=== PATIENT | male | born 1955 | race Caucasian/White ===

== ENCOUNTER 2019-07-05 13:46 | Day surgery (SDC) | payer OTHER, SELFPAY ==
[2019-07-05 14:22] VITALS: BP 141/91; PULSE 72; RESP 16; TEMP 36.9; O2SAT 96; BMI 26.0
[2019-07-05] MEDS: SODIUM CHLORIDE 0.9% 1,000 ML 200 ML IV (14:39)
[2019-07-05] MEDS: HYOSCYAMINE 0.125 MG TABLET PO (14:39)
--- NOTE | 2019-07-05 15:23 | PM.PREOP ---
Pre-operative Note Interval Note History & Physical reviewed/Exam performed by Physician: Yes Changes to H&P: No ASA Class (for procedural sedation): II
--- NOTE | 2019-07-05 15:23 | PM.OP.ENDO ---
Operative Date/Time/Diagnoses Date of procedure: 07/05/19 Time of procedure: 15:23 Pre-op diagnosis: 1. Left lower quadrant pain 2. Hematochezia 3. Screening for colon cancer Post-op diagnosis: other (Normal colonoscopy, mild sigmoid diverticulosis, external hemorrhoids) Procedure & Clinicians Study performed: 1. Colonoscopy Same procedure as scheduled: Yes Indications: 1. Screening for colon cancer Surgeon: Danielle Martinez Procedure Notes SCOAP/Timeout: 15:39 Procedure in detail: ENDOSCOPIST: Danielle Martinez MD Sedation RN: Zena Clifton RN Sedation start time: 3:39 p.m. Sedation and time: 4:11 p.m. PROCEDURE: Colonoscopy INDICATIONS: 1. Hematochezia 2. Left lower quadrant abdominal pain 3. Screening for colon cancer MEDICATION: Levsin 0.125 mg sublingual, incremental doses of Versed and fentanyl until appropriate level sedation achieved. ASA CLASS: 2 CECAL WITHDRAWAL TIME: 9 minutes COMPLICATIONS: None. EXTENT OF PROCEDURE: Cecum. QUALITY OF PREP: Good with portions of liquid stool. PROCEDURE: Prior to insertion of the colonoscope, a digital rectal examination was accomplished with circumferential palpation of the distal rectal mucosa without significant findings noted. The high-definition colonoscope was passed into the rectum in the usual fashion and advanced over to the cecum without difficulty. The ileocecal valve, appendiceal stoma, and medial wall all could be inspected and no abnormalities were seen. ASCENDING COLON: As the colonoscope was withdrawn, care was taken to expose and inspect the haustral folds and no abnormalities were seen. HEPATIC FLEXURE: Normal no polyps, diverticula or other abnormalities. TRANSVERSE COLON: Normal no polyps, diverticula or other abnormalities. DESCENDING COLON: Normal no polyps, diverticula or other abnormalities. SIGMOID COLON: Manage diverticulosis, otherwise, normal, no polyps, or other abnormalities. RECTUM: Normal. J maneuver was produced. There was no significant perianal disease. The J maneuver was broken. The remainder of the rectum was inspected and there was mild external hemorrhoid disease, nonthrombosed. The scope was withdrawn. IMPRESSION: 1. Normal colonoscopy 2. Diverticulosis, sigmoid, mild 3. External hemorrhoids, nonthrombosed PLAN: 1. Repeat colonoscopy in 10 years. 2. Hematochezia likely secondary to external hemorrhoids. Recommended high-fiber diet and increased water intake for treatment of diverticulosis and external hemorrhoids. The possibility of a missed lesion including a malignancy has been discussed with the patient previously. Potential alarm symptoms have been discussed and should be reported immediately. Scope withdrawal time: 9 minutes Sedation minutes: 35 Findings: diverticulosis and other findings (External hemorrhoids) Specimen(s): none sent Complications: none Impression: As above Post-procedure Recommendations: Colonscopy in 10 years Follow up: as needed Disposition: PACU
[2019-07-05] MEDS: fentaNYL 250 MCG/5 ML INJ IV (16:13)
[2019-07-05] MEDS: MIDAZOLAM 5 MG/5 ML VIAL IV (16:13)
[2019-07-05 16:17] VITALS: BP 99/63; PULSE 57; RESP 14; TEMP 36.1; O2SAT 95
[2019-07-05 16:22] VITALS: BP 99/63; PULSE 57; RESP 16; O2SAT 95
[2019-07-05 16:27] VITALS: BP 132/82; PULSE 69; RESP 16; O2SAT 96
[2019-07-05 16:33] VITALS: BP 129/75; PULSE 63; RESP 16; TEMP 36.4; O2SAT 95
[2019-07-05 16:40] VITALS: BP 132/73; PULSE 59; RESP 16; O2SAT 98
== END 2019-07-05 16:55 | disposition home or self-care (01) ==
PROVIDERS: PCP Family Medicine; Visit Provider Student in an Organized Health Care Education/Training Program
PROC: 0DJD8ZZ Inspection of Lower Intestinal Tract, Via Natural or Artificial Opening Endoscopic (ICD-10-PCS; CPT 45378; principal; 2019-07-05 15:00)
DX: R10.32 Left lower quadrant pain (principal); K92.1 Melena; K57.30 Diverticulosis of large intestine without perforation or abscess without bleeding; K64.4 Residual hemorrhoidal skin tags
CPT/HCPCS: 45378; J2250; J3010

== ENCOUNTER 2020-12-29 18:11 | Observation (INO) | payer MEDICARE, SELFPAY ==
[2020-12-29] VITALS (25 sets, daily range): BP systolic 134–220; BP diastolic 80–107; PULSE 64–87; RESP 15–36; TEMP 36.4–36.7; O2SAT 89–100; BMI 26.8
--- NOTE | 2020-12-29 | DI.CT.S_ITS ---
PROCEDURE: CT HEAD/BRAIN WO CON INDICATIONS: possible stroke TECHNIQUE: Noncontrast 4.5 mm thick angled axial sections acquired from the foramen magnum to the vertex, with coronal and sagittal reformats. For radiation dose reduction, the following was used: automated exposure control, adjustment of mA and/or kV according to patient size. COMPARISON: None. FINDINGS: Image quality: Excellent. CSF spaces: Basal cisterns are patent. No extra-axial fluid collections. The ventricles are symmetric in size and shape. Brain: No intracranial bleeds or masses. There is mild cerebral volume loss for age, with resultant ventricular and sulcal prominence. There are minimal periventricular and deep white matter chronic small vessel ischemic changes. There is intracranial internal carotid artery atherosclerosis. Skull and face: Calvarium and visualized facial bones appear intact, without suspicious lesions. Sinuses: Visualized sinuses and mastoids are clear. IMPRESSION: 1. No acute intracranial abnormalities. Dictated by: Tomasa Felipe M.D. on 12/29/2020 at 18:24 Approved by: Tomasa Felipe M.D. on 12/29/2020 at 18:25
--- NOTE | 2020-12-29 18:13 | DI.CT.S_ITS ---
PROCEDURE: CT ANGIO HEAD AND NECK INDICATIONS: code stroke TECHNIQUE: Noncontrast images were performed earlier in the day and not repeated. After the administration of intravenous contrast, 1 mm thick sections acquired from the aortic arch through the [place]. Post-contrast 4.5 mm thick sections then re-acquired from the foramen magnum to the vertex. 3-dimensional hkuzspd-nchvaqpep-bipuxbgmql (MIP) and/or volume rendering reformats were acquired of the central intracranial vasculature and neck separately. COMPARISON: [facility], CT, CT HEAD/BRAIN WO CON, 12/29/2020, 18:12. FINDINGS: Image quality: Excellent. BRAIN: CSF spaces: Ventricles are normal in size and shape. Basal cisterns are patent. No extra-axial fluid collections. Brain: No midline shift. No intracranial bleeds or masses. Hernández-white matter interface appears intact. Skull and face: Calvarium and facial bones appear intact, without suspicious lesions. Orbits appear normal. Sinuses: Sinuses and mastoids are clear. HEAD CT ANGIOGRAPHY: Anterior circulation: Intracranial internal carotid arteries are normal in size and flow. The flow within the paired anterior cerebral arteries is normal and symmetric. The flow within the middle cerebral arteries is normal and symmetric. The anterior communicating artery is seen. No aneurysms are seen. Posterior circulation: Visualized portions of the vertebral arteries demonstrate normal caliber, and join to form a normal appearing basilar artery. Flow within the posterior cerebral arteries is normal and symmetric. No aneurysms are seen. NECK CT ANGIOGRAPHY: Carotid system: The great vessels demonstrate a conventional anatomy as they arise from the aortic arch. The origins of the common carotid arteries appear patent. The common carotid arteries demonstrate normal caliber and courses. The bifurcation regions are both widely patent. The internal carotid arteries demonstrate normal calibers and courses. Posterior circulation: The origins of the vertebral arteries both appear widely patent. The more superior extracranial portions of both vertebral arteries also demonstrate normal courses and calibers. They join to form a normal appearing basilar artery. Soft tissues: Visualized neck soft tissues demonstrate no suspicious abnormalities. Bones: No suspicious bony lesions. Visualized cervical spine appears normally aligned. Cervical spine degenerative changes are seen, with moderate disc space narrowing at C2-C3 and moderate to severe disc space narrowing at C3-C4, C4-C5, C5-C6, and C6-C7. Degenerative changes are also seen within the visualized thoracic spine. IMPRESSION: No significant intracranial abnormality is seen. No abnormal enhancement. No significant intracranial arterial abnormality is seen. Within the arteries of the neck, no hemodynamically significant stenosis can be seen. Prominent cervical spine degenerative changes are noted. Any quantitative measurements of stenosis were performed using NASCET criteria. Dictated by: Jhony Sparks M.D. on 12/29/2020 at 17:33 Approved by: Jhony Sparks M.D. on 12/29/2020 at 17:36
[2020-12-29 18:18] LABS: Add Manual Diff / Slide Review NO; Basophils Absolute Auto 100 /uL (0-100); Basophils Percent Auto 0.9 % (0-2); Eosinophils Absolute Auto 200 /uL (0-450); Eosinophils Percent Auto 1.6 % (2-4); Hematocrit 44.1 % (41-53); Hemoglobin 14.8 g/dL (13.5-17.5); Lymphocytes Absolute Auto 1900 /uL (1100-4500); Lymphocytes Percent Auto 16.1 % (25-40); Mean Corpuscular HGB Conc 33.5 % (30-36); Mean Corpuscular Hemoglobin 33.6 PG (26-34); Mean Corpuscular Volume 100.2 fL (80-100); Monocytes Absolute Auto 1000 /uL (0-900); Monocytes Percent Auto 8.1 % (3-14); Neutrophils Absolute Auto 8600 /uL (1500-7000); Neutrophils Percent Auto 73.3 % (50-75); Platelet Count 244 X10^3/uL (150-400); Red Cell Distribution Width 13.2 % (11.6-14.8); White Blood Cell Count 11.7 X10^3/uL (4.5-11.0)
--- NOTE | 2020-12-29 18:28 | ED_ITS ---
HPI - Altered Mental Status General Chief Complaint: Neuro Symptoms/Deficit Stated Complaint: Code Stroke Time Seen by Provider: 12/29/20 18:12 Source: patient, family and EMS Mode of arrival: EMS Limitations: no limitations History of Present Illness HPI narrative: 65-year-old male nonsmoker with history of hypothyroid presents by EMS for evaluation of a sudden onset confusion at 3:30 p.m. today. He had been in his normal state of health up until then and working outside with his . He came inside to shower and then call to her and was confused, he kept repeating questions about what it happened how he got there and where he was. At no point did she notice any slurring of speech, facial droop, perceived weakness of extremities or other. He has had no recent trauma or injuries. He has no recent changes in medication or diet. No recent fever or chills, runny nose, sore throat or cough. No history of bleeding troubles. He was activated as a code stroke and taken directly to CT scan. MD complaint: altered mental status and confusion Time: 15:30 Timing confirmed by: spouse Severity: moderate Consistency of symptoms: constant Associated symptoms: denies other symptoms Related Data Home Medications Medication Instructions Recorded Confirmed levothyroxine 150 mcg PO QAM 12/29/20 12/29/20 Allergies Allergy/AdvReac Type Severity Reaction Status Date / Time No Known Drug Allergies Allergy Verified 07/05/19 14:21 Review of Systems Constitutional Constitutional: Denies chills, Denies fatigue, Denies fever(s), Denies frequent falls, Denies lethargy and Denies weakness Eyes Eyes: Denies change in vision, Denies eye discharge, Denies irritation and Denies loss of vision ENT Ears, Nose, Mouth, and Throat: Denies change in voice, Denies dizziness, Denies neck pain, Denies sore throat and Denies throat swelling Cardiovascular Cardiovascular: Denies chest pain, Denies irregular heart rhythm, Denies lightheadedness, Denies palpitations, Denies dyspnea, Denies dyspnea on exertion and Denies orthopnea Respiratory Respiratory: Denies cough, Denies dyspnea, Denies dyspnea on exertion and Denies wheezing Gastrointestinal Gastrointestinal: Denies abdominal pain, Denies change in bowel habits, Denies diarrhea, Denies nausea and Denies vomiting Musculoskeletal Musculoskeletal: Denies neck pain and Denies numbness Integumentary/Breasts Skin/Breast: Denies pruritus, Denies erythema, Denies rash and Denies wounds Neurologic Neurologic: Denies behavioral changes, Reports confusion, Denies dizziness, Denies frequent falls, Denies loss of vision, Denies numbness and Denies weakness Psychiatric Psychiatric: Denies anxiety, Denies behavioral changes, Reports confusion, Denies depression, Denies homicidal ideation and Denies suicidal ideation Endocrine Endocrine: Denies fatigue, Denies flushing and Denies palpitations Hematologic/Lymphatic Hematologic/Lymphatic: Denies easy bruising Allergic/Immunologic Allergic/Immunologic: Denies urticaria, Denies throat swelling and Denies wheezing Patient History Social History household members: spouse Smoking Status: Never smoker Smoking Status: Never smoker alcohol intake frequency: 0-2 drinks per day Substance Use Type: does not use Exam Narrative Exam Narrative: GENERAL: [65] year old patient appears stated age. Well- nourished, well-developed patient, in mild distress. Anxious, nervous, confused, repetitive questioning HEAD: Atraumatic. Normocephalic. EYES: Pupils equal round and reactive. Extraocular motions intact. No scleral icterus. No injection or drainage. ENT: Nose without bleeding, purulent drainage. Throat without erythema, tonsillar hypertrophy or exudate. Airway patent. NECK: Trachea midline. Non tender CARDIOVASCULAR: Regular rate and rhythm without murmurs, gallops, or rubs. RESPIRATORY: Clear to auscultation. Breath sounds equal bilaterally. No wheezes, rales, or rhonchi. GASTROINTESTINAL: Abdomen soft, non-tender, nondistended. EXTREMITIES: No edema or joint tenderness. BACK: Nontender without deformity or crepitance. No flank tenderness. NEURO: Alert to person, place SKIN: No rash or erythema of visible areas Initial Vital Signs Initial Vital Signs: Vital Signs Temperature 97.8 F 12/29/20 18:10 Pulse Rate 85 12/29/20 18:10 Respiratory Rate 15 12/29/20 18:10 Blood Pressure 220/103 H 12/29/20 18:10 Pulse Oximetry 100 12/29/20 18:10 Scores NIH Stroke Scale Level of Conciousness: Alert, keenly responsive Ask month/age: Answers one question correctly, intubated follow commands Open/close eyes, close hand: Performs both tasks correctly Best gaze horizontal: Normal Visual aggarwal: No visual loss Facial palsy: Normal symetrical movement Left arm drift: No drift for full 10 sec Right arm drift: No drift for full 10 sec Left leg drift: No drift for full 5 sec Right leg drift: No drift for full 5 sec Limb ataxia: Absent Sensory on face/arms/legs: Normal, no sensory loss Best language: No aphasia, normal Dysarthria: Normal Extinction or inattention: No abnormality Total NIH Stroke scale score: 1 Course Orders Ordered: ED Orders 12/29/20 18:12 EKG-12 Lead Stat 12/29/20 18:13 CT angio head and neck Stat 12/29/20 18:15 Basic Metabolic Panel Stat Complete Blood Count AUTO DIFF Stat Free T4, Direct Thyroxine Stat Magnesium Stat Partial Thromboplastin Time Stat Prothrombin Time INR Stat TSH w/ Reflex to FT4 Stat 12/29/20 18:25 COVID19 -Nasal swab/Pre-Proc Stat 12/29/20 18:45 UA Complete [Urinalysis and Microscopic] Stat Urine Drug Screen, Rapid Stat 12/29/20 19:00 COVID19 - ADMIT (AUDIO VISUAL TECHNICIAN swab/PCR) Stat Acetaminophen (Acetaminophen 325 Mg Tablet) 650 mg PO Q6HR PRN PRN Reason: Fever/Mild Pain (1-3) Al Hydrox/Mg Hydrox/Simethicone (Mag Hydrox/Alum/Simeth 30 Ml Udc) 30 ml PO Q6HR PRN PRN Reason: Dyspepsia Calcium Carbonate (Calcium Carbonate 500 Mg Tab) 1,000 mg PO Q4HR PRN PRN Reason: Dyspepsia Enoxaparin Sodium (Enoxaparin 40 Mg/0.4 Ml Syringe) 40 mg SUBCUT DAILY TATUM Ibuprofen (Ibuprofen 600 Mg Tablet) 600 mg PO Q6HR PRN PRN Reason: Fever/Mild Pain (1-3) Naloxone HCl (Naloxone 0.4 Mg/Ml Vial) 0.2 mg IV Q2MIN PRN PRN Reason: Opiate Reversal Ondansetron HCl (Ondansetron 4 Mg/2 Ml Inj) 4 mg IV Q8HR PRN PRN Reason: Nausea And Vomiting Sodium Chloride (Sodium Chloride 0.9% Flush) 10 ml IV PRN PRN PRN Reason: Flush Sodium Chloride (Sodium Chloride 0.9% Flush) 10 ml IV BID TATUM Discontinued Medications Sodium Chloride (Normal Saline 0.9%) 1,000 mls @ 150 mls/hr IV CONT TATUM Last Infusion: 12/29/20 21:24 Dose: 0 mls/hr Documented by: Admin: 12/29/20 18:35 Dose: 150 mls/hr Documented by: ANTWON Labetalol HCl (Labetalol 20 Mg/4 Ml Syringe) 20 mg IV NOW ONE Stop: 12/29/20 18:28 Last Admin: 12/29/20 20:09 Dose: Not Given Documented by: ANTWON Consultations Consultation #1: call to Telestroke upon return from CT. After discussion of history, physical, and imaging Dr. Cain shares the opinion that the patient is not a candidate for TPA given low NIHSS (1 for confusion) and that risks would outweigh potential benefit. This is relayed to who agrees. Suggests that diagnosis sounds like possible TGA and patient will require admission for stroke work up including echo and MRI/MRA. Consultation #2: Dr. Purdy is happy to accept Vital Signs Vital signs: Vital Signs - 8 hr 12/29/20 18:10 12/29/20 18:21 12/29/20 18:25 Temperature 97.8 F Pulse Rate 85 87 84 Respiratory Rate 15 33 H Blood Pressure 220/103 H 220/103 H Pulse Oximetry 100 89 L 98 12/29/20 18:30 12/29/20 18:31 12/29/20 18:40 Temperature Pulse Rate 76 75 75 Respiratory Rate 28 H 27 H 33 H Blood Pressure 177/86 H Pulse Oximetry 100 100 99 12/29/20 18:46 12/29/20 18:49 12/29/20 18:50 Temperature Pulse Rate 83 68 69 Respiratory Rate 36 H 26 H 22 Blood Pressure 160/80 H 176/87 H Pulse Oximetry 98 98 98 12/29/20 19:00 12/29/20 19:10 12/29/20 19:20 Temperature Pulse Rate 73 68 74 Respiratory Rate 24 24 22 Blood Pressure 168/86 H 170/89 H 180/107 H Pulse Oximetry 99 100 12/29/20 19:30 12/29/20 19:40 Temperature Pulse Rate 69 69 Respiratory Rate 21 19 Blood Pressure 151/85 H 152/91 H Pulse Oximetry 98 98 MDM - Altered Mental Status Lab Data Result diagrams: 12/29/20 18:15 12/29/20 18:15 Labs: Lab Results 12/29/20 12/29/20 12/29/20 Range/Units 18:15 18:15 18:15 WBC 11.7 H (4.5-11.0) X10^3/uL RBC 4.40 L (4.5-5.9) X10^6/uL Hgb 14.8 (13.5-17.5) g/dL Hct 44.1 (41-53) % MCV 100.2 H (80-100) fL MCH 33.6 (26-34) PG MCHC 33.5 (30-36) % RDW 13.2 (11.6-14.8) % Plt Count 244 (150-400) X10^3/uL Neut % (Auto) 73.3 (50-75) % Lymph % (Auto) 16.1 L (25-40) % [place] % (Auto) 8.1 (3-14) % Eos % (Auto) 1.6 L (2-4) % Baso % (Auto) 0.9 (0-2) % Neut # (Auto) 8600 H (9936-0094) /uL Lymph # (Auto) 1900 (4544-0737) /uL [place] # (Auto) 1000 H (0-900) /uL Eos # (Auto) 200 (0-450) /uL Baso # (Auto) 100 (0-100) /uL PT 11.7 (10.1-12.7) SECONDS INR 1.0 (0.9-1.3) APTT 33 (26.4-36.2) SECONDS Sodium 138 (137-145) mmol/L Potassium 3.9 (3.4-5.1) mmol/L Chloride 106 (98-107) mmol/L Carbon Dioxide 28 (22-32) mmol/L BUN 16 (9-20) mg/dL Creatinine 1.13 (0.66-1.25) mg/dL Estimated GFR > 60.0 (>60) mL/min BUN/Creatinine Ratio 14.2 (6-22) Glucose 99 (80-110) mg/dL Calcium 9.8 (8.4-10.2) mg/dL Magnesium (1.6-2.3) mg/dL TSH (0.47-4.68) uIU/mL Free T4 (0.78-2.19) ng/dL Urine Color Urine Appearance Urine pH (4.5-8.0) Ur Specific [place] (1.000-1.035) Urine Protein (Negative) Urine Glucose (UA) (Negative) g/dL Urine Ketones (NEGATIVE) Urine Occult Blood (Negative) Urine Nitrate (Negative) Urine Bilirubin (NEGATIVE) Urine Urobilinogen (0.2) E.U./dL Ur Leukocyte Esterase (NEGATIVE) Urine RBC (0-5/HPF) Urine WBC (0-5/HPF) Urine Bacteria (None) Ur Culture Indicated? Micro UA Comment U Opiates 300ng/mL cut (Negative) Ur Oxycodone Screen (Negative) Urine Methadone Screen (Negative) Ur Barbiturates Screen (Negative) U Tricyclic Antidepress (Negative) Ur Phencyclidine Scrn (Negative) Ur Amphetamines Screen (Negative) U Methamphetamines Scrn (Negative) Ur MDMA Scrn (Ecstasy) (Negative) U Benzodiazepines Scrn (Negative) Urine Cocaine Screen (Negative) U Marijuana (THC) Screen (Negative) SARS-CoV-2 (PCR) (Negative) 12/29/20 12/29/20 12/29/20 Range/Units 18:15 18:15 18:25 WBC (4.5-11.0) X10^3/uL RBC (4.5-5.9) X10^6/uL Hgb (13.5-17.5) g/dL Hct (41-53) % MCV (80-100) fL MCH (26-34) PG MCHC (30-36) % RDW (11.6-14.8) % Plt Count (150-400) X10^3/uL Neut % (Auto) (50-75) % Lymph % (Auto) (25-40) % [place] % (Auto) (3-14) % Eos % (Auto) (2-4) % Baso % (Auto) (0-2) % Neut # (Auto) (3077-4533) /uL Lymph # (Auto) (1944-6711) /uL [place] # (Auto) (0-900) /uL Eos # (Auto) (0-450) /uL Baso # (Auto) (0-100) /uL PT (10.1-12.7) SECONDS INR (0.9-1.3) APTT (26.4-36.2) SECONDS Sodium (137-145) mmol/L Potassium (3.4-5.1) mmol/L Chloride (98-107) mmol/L Carbon Dioxide (22-32) mmol/L BUN (9-20) mg/dL Creatinine (0.66-1.25) mg/dL Estimated GFR (>60) mL/min BUN/Creatinine Ratio (6-22) Glucose (80-110) mg/dL Calcium (8.4-10.2) mg/dL Magnesium 1.9 (1.6-2.3) mg/dL TSH 0.06 L (0.47-4.68) uIU/mL Free T4 1.46 (0.78-2.19) ng/dL Urine Color Urine Appearance Urine pH (4.5-8.0) Ur Specific [place] (1.000-1.035) Urine Protein (Negative) Urine Glucose (UA) (Negative) g/dL Urine Ketones (NEGATIVE) Urine Occult Blood (Negative) Urine Nitrate (Negative) Urine Bilirubin (NEGATIVE) Urine Urobilinogen (0.2) E.U./dL Ur Leukocyte Esterase (NEGATIVE) Urine RBC (0-5/HPF) Urine WBC (0-5/HPF) Urine Bacteria (None) Ur Culture Indicated? Micro UA Comment U Opiates 300ng/mL cut (Negative) Ur Oxycodone Screen (Negative) Urine Methadone Screen (Negative) Ur Barbiturates Screen (Negative) U Tricyclic Antidepress (Negative) Ur Phencyclidine Scrn (Negative) Ur Amphetamines Screen (Negative) U Methamphetamines Scrn (Negative) Ur MDMA Scrn (Ecstasy) (Negative) U Benzodiazepines Scrn (Negative) Urine Cocaine Screen (Negative) U Marijuana (THC) Screen (Negative) SARS-CoV-2 (PCR) Negative (Negative) 12/29/20 12/29/20 12/29/20 Range/Units 18:45 18:45 19:00 WBC (4.5-11.0) X10^3/uL RBC (4.5-5.9) X10^6/uL Hgb (13.5-17.5) g/dL Hct (41-53) % MCV (80-100) fL MCH (26-34) PG MCHC (30-36) % RDW (11.6-14.8) % Plt Count (150-400) X10^3/uL Neut % (Auto) (50-75) % Lymph % (Auto) (25-40) % [place] % (Auto) (3-14) % Eos % (Auto) (2-4) % Baso % (Auto) (0-2) % Neut # (Auto) (6097-2349) /uL Lymph # (Auto) (6091-2705) /uL [place] # (Auto) (0-900) /uL Eos # (Auto) (0-450) /uL Baso # (Auto) (0-100) /uL PT (10.1-12.7) SECONDS INR (0.9-1.3) APTT (26.4-36.2) SECONDS Sodium (137-145) mmol/L Potassium (3.4-5.1) mmol/L Chloride (98-107) mmol/L Carbon Dioxide (22-32) mmol/L BUN (9-20) mg/dL Creatinine (0.66-1.25) mg/dL Estimated GFR (>60) mL/min BUN/Creatinine Ratio (6-22) Glucose (80-110) mg/dL Calcium (8.4-10.2) mg/dL Magnesium (1.6-2.3) mg/dL TSH (0.47-4.68) uIU/mL Free T4 (0.78-2.19) ng/dL Urine Color Yellow Urine Appearance Clear Urine pH 7.0 (4.5-8.0) Ur Specific [place] 1.010 (1.000-1.035) Urine Protein Negative (Negative) Urine Glucose (UA) Negative (Negative) g/dL Urine Ketones 1+ H (NEGATIVE) Urine Occult Blood Negative (Negative) Urine Nitrate Negative (Negative) Urine Bilirubin Negative (NEGATIVE) Urine Urobilinogen 0.2 (0.2) E.U./dL Ur Leukocyte Esterase Negative (NEGATIVE) Urine RBC 0-1/hpf (0-5/HPF) Urine WBC 0-1/hpf (0-5/HPF) Urine Bacteria None seen (None) Ur Culture Indicated? Cult not indicated Micro UA Comment Microscopic normal U Opiates 300ng/mL cut Negative (Negative) Ur Oxycodone Screen Negative (Negative) Urine Methadone Screen Negative (Negative) Ur Barbiturates Screen Negative (Negative) U Tricyclic Antidepress Negative (Negative) Ur Phencyclidine Scrn Negative (Negative) Ur Amphetamines Screen Negative (Negative) U Methamphetamines Scrn Negative (Negative) Ur MDMA Scrn (Ecstasy) Negative (Negative) U Benzodiazepines Scrn Negative (Negative) Urine Cocaine Screen Negative (Negative) U Marijuana (THC) Screen Negative (Negative) SARS-CoV-2 (PCR) Negative (Negative) Point of Care Testing Glucose POC [address] scan - head: Attestation: I personally reviewed and interpreted this imaging study as follows: My Impression: No bleed Radiologist's Impression: London Roberson 65 M [address] [id number] Scan ReportSigned Patient: London Roberson WMR#: [id number]: [id number]:[id number]/Sex: 65 / MDate of Service: 12/29/20Loc: EDAccession Number: [id number] Procedure: CT head/brain wo con Ordering Provider: Catrachito Disla D.O. PROCEDURE: CT HEAD/BRAIN WO CON INDICATIONS: possible stroke TECHNIQUE: Noncontrast 4.5 mm thick angled axial sections acquired from the foramen magnum to the vertex, with coronal and sagittal reformats. For radiation dose reduction, the following was used: automated exposure control, adjustment of mA and/or kV according to patient size. COMPARISON: None. FINDINGS: Image quality: Excellent. CSF spaces: Basal cisterns are patent. No extra-axial fluid collections. The ventricles are symmetric in size and shape. Brain: No intracranial bleeds or masses. There is mild cerebral volume loss for age, with resultant ventricular and sulcal prominence. There are minimal periventricular and deep white matter chronic small vessel ischemic changes. There is intracranial internal carotid artery atherosclerosis. Skull and face: Calvarium and visualized facial bones appear intact, without suspicious lesions. Sinuses: Visualized sinuses and mastoids are clear. IMPRESSION: 1. No acute intracranial abnormalities. Dictated by: Tomasa Felipe M.D. on 12/29/2020 at 18:24 Approved by: Tomasa Felipe M.D. on 12/29/2020 at 18:25 CTA - brain/neck: Radiologist's Impression: [facility] [place] [id number] Scan ReportSigned Patient: London Roberson WMR#: [id number]: [id number]:[id number]/Sex: 65 / MDate of Service: 12/29/20Loc: EDAccession Number: [id number] Procedure: CT angio head and neck Ordering Provider: Catrachito Disla D.O. PROCEDURE: CT ANGIO HEAD AND NECK INDICATIONS: code stroke TECHNIQUE: Noncontrast images were performed earlier in the day and not repeated. After the administration of intravenous contrast, 1 mm thick sections acquired from the aortic arch through the [place] of [place]. Post-contrast 4.5 mm thick sections then re- acquired from the foramen magnum to the vertex. 3-dimensional nlvsuvm-[id number]-sgrlcwbknv (MIP) and/or volume rendering reformats were acquired of the central intracranial vasculature and neck separately. COMPARISON: [facility], CT, CT HEAD/BRAIN WO CON, 12/29/2020, 18:12. FINDINGS: Image quality: Excellent. BRAIN: CSF spaces: Ventricles are normal in size and shape. Basal cisterns are patent. No extra-axial fluid collections. Brain: No midline shift. No intracranial bleeds or masses. Hernández-white matter interface appears intact. Skull and face: Calvarium and facial bones appear intact, without suspicious lesions. Orbits appear normal. Sinuses: Sinuses and mastoids are clear. HEAD CT ANGIOGRAPHY: Anterior circulation: Intracranial internal carotid arteries are normal in size and flow. The flow within the paired anterior cerebral arteries is normal and symmetric. The flow within the middle cerebral arteries is normal and symmetric. The anterior communicating artery is seen. No aneurysms are seen. Posterior circulation: Visualized portions of the vertebral arteries demonstrate normal caliber, and join to form a normal appearing basilar artery. Flow within the posterior cerebral arteries is normal and symmetric. No aneurysms are seen. NECK CT ANGIOGRAPHY: Carotid system: The great vessels demonstrate a conventional anatomy as they arise from the aortic arch. The origins of the common carotid arteries appear patent. The common carotid arteries demonstrate normal caliber and courses. The bifurcation regions are both widely patent. The internal carotid arteries demonstrate normal calibers and courses. Posterior circulation: The origins of the vertebral arteries both appear widely patent. The more superior extracranial portions of both vertebral arteries also demonstrate normal courses and calibers. They join to form a normal appearing basilar artery. Soft tissues: Visualized neck soft tissues demonstrate no suspicious abnormalities. Bones: No suspicious bony lesions. Visualized cervical spine appears normally aligned. Cervical spine degenerative changes are seen, with moderate disc space narrowing at C2-C3 and moderate to severe disc space narrowing at C3-C4, C4-C5, C5-C6, and C6-C7. Degenerative changes are also seen within the visualized thoracic spine. IMPRESSION: No significant intracranial abnormality is seen. No abnormal enhancement. No significant intracranial arterial abnormality is seen. Within the arteries of the neck, no hemodynamically significant stenosis can be seen. Prominent cervical spine degenerative changes are noted. Any quantitative measurements of stenosis were performed using NASCET criteria. Dictated by: Jhony Sparks M.D. on 12/29/2020 at 17:33 Approved by: Jhony Sparks M.D. on 12/29/2020 at 17:36 Discharge Plan Departure Patient Disposition: Admitted as Observation Clinical Impression: Acute confusion, Amnesia, global, transient Admit Date/Time: 12/29/20 19:44 Admit Provider: Aggie Purdy
[2020-12-29 18:30] LABS: Prothrombin Time 11.7 SECONDS (10.1-12.7)
[2020-12-29 18:32] LABS: PTT Partial Thromboplastin Tim 33 SECONDS (26.4-36.2)
[2020-12-29 18:33] LABS: BUN Creatinine Ratio 14.2 (6-22); Blood Urea Nitrogen 16 mg/dL (9-20); Calcium 9.8 mg/dL (8.4-10.2); Carbon Dioxide 28 mmol/L (22-32); Chloride 106 mmol/L (98-107); Estimated Glomerular Filt Rate > 60.0 mL/min (>60); Glucose 99 mg/dL (80-110); HEMOLYSIS < 15 (0-50); Potassium 3.9 mmol/L (3.4-5.1); Sodium 138 mmol/L (137-145)
[2020-12-29] MEDS: SODIUM CHLORIDE 0.9% 1,000 ML 150 ML IV (18:35)
[2020-12-29 18:46] LABS: COVID19 -Nasal RAPID Negative (Negative)
[2020-12-29 19:03] LABS: UR Morphine/Opiate cutoff 300 Negative (Negative); Ur Creatinine Normal (Normal); Ur Specific Gravity Normal (Normal); Urine Amphetamines Negative (Negative); Urine Barbiturates Negative (Negative); Urine Benzodiazepines Negative (Negative); Urine Cocaine Negative (Negative); Urine MDMA Negative (Negative); Urine Methadone Negative (Negative); Urine Methamphetamines Negative (Negative); Urine Oxycodone Negative (Negative); Urine Phencyclidine Negative (Negative); Urine Tetrahydrocannabinol Negative (Negative); Urine Tricyclic Antidepressant Negative (Negative); Urine pH Normal (Normal)
[2020-12-29 19:05] LABS: Bacteria Urine None Seen
--- NOTE | 2020-12-29 19:05 | PC.NURSE ---
patient continues to ask the same questions, whats going on? did I eat dinner?, is it ten to 7? explains the same repetetative questions starting today at 1530. she reports jaime got out of the shower and started asking if he took his shower yet. he put deodorant on 4 or five time. she attempted to get him in the car however he did not know why and refused to get into the car. she called EMS.
[2020-12-29 19:09] LABS: Appearance Urine UA CLEAR; Bilirubin Urine UA NEGATIVE (NEGATIVE); Color Urine UA YELLOW; Glucose Urine UA NEGATIVE (Negative); Ketones Urine UA 1+ (NEGATIVE); Leukocyte Esterase Urine UA NEGATIVE (NEGATIVE); Nitrite Urine UA NEGATIVE (Negative); Occult Blood Urine UA NEGATIVE (Negative); Protein Urine UA NEGATIVE (Negative); Urobilinogen Urine UA 0.2 E.U./dL (0.2)
[2020-12-29 19:15] LABS: Culture Indicated Urine Cult Not Indicated; RBC Urine 0-1/HPF (0-5/HPF); Urine Comments Microscopic Normal; WBC Urine 0-1/HPF (0-5/HPF)
[2020-12-29 20:04] LABS: Magnesium 1.9 mg/dL (1.6-2.3)
[2020-12-29 20:30] LABS: COVID19 - ADMIT (NP swab/PCR) Negative (Negative)
[2020-12-29 20:39] LABS: TSH w/ Reflex to FT4 0.06 uIU/mL (0.47-4.68)
[2020-12-29 21:05] LABS: Free T4, Direct Thyroxine 1.46 ng/dL (0.78-2.19)
--- NOTE | 2020-12-30 01:30 | PC.NURSE ---
2325: patient is alert and oriented except is unable to recall what happened that brought him to the hospital and does not remember coming to the hospital. Attempts to deflect memory problem by stating it's old age. Breath sounds CTA with RA sat of 99%. HRR with telemetry reading of SR. Denies nausea. BT present and abdomen is soft. Has nocturia but denies dysuria, frequency or urgency with urination. Independent with mobility and is steady on feet. Does relate he has a 2/10 headache but declines offer of pain medication. Wearing bilateral calf SCD's. Fall risk score is low.
[2020-12-30 03:26] VITALS: BP 143/88; PULSE 60; RESP 20; TEMP 37.1; O2SAT 97
[2020-12-30 05:44] LABS: Add Manual Diff / Slide Review NO; Basophils Absolute Auto 100 /uL (0-100); Eosinophils Absolute Auto 300 /uL (0-450); Eosinophils Percent Auto 4.1 % (2-4); Hematocrit 41.5 % (41-53); Hemoglobin 13.8 g/dL (13.5-17.5); Lymphocytes Absolute Auto 1100 /uL (1100-4500); Lymphocytes Percent Auto 15.8 % (25-40); Mean Corpuscular HGB Conc 33.3 % (30-36); Mean Corpuscular Hemoglobin 33.2 PG (26-34); Mean Corpuscular Volume 99.7 fL (80-100); Monocytes Absolute Auto 800 /uL (0-900); Neutrophils Absolute Auto 4500 /uL (1500-7000); Neutrophils Percent Auto 67.1 % (50-75); Platelet Count 207 X10^3/uL (150-400); Red Blood Cell Count 4.16 X10^6/uL (4.5-5.9); Red Cell Distribution Width 13.3 % (11.6-14.8); White Blood Cell Count 6.7 X10^3/uL (4.5-11.0)
[2020-12-30 05:48] LABS: Alanine Aminotransferase 16 IU/L (<50); Albumin 3.8 g/dL (3.5-5.0); Albumin Globulin Ratio 1.5 (1.0-2.8); Alkaline Phosphatase 58 U/L (38-126); Aspartate Aminotransferase 30 IU/L (17-59); BUN Creatinine Ratio 12.6 (6-22); Blood Urea Nitrogen 13 mg/dL (9-20); Calcium 8.9 mg/dL (8.4-10.2); Carbon Dioxide 30 mmol/L (22-32); Chloride 106 mmol/L (98-107); Estimated Glomerular Filt Rate > 60.0 mL/min (>60); Globulin 2.6 g/dL (1.7-4.1); Glucose 100 mg/dL (80-110); HEMOLYSIS < 15 (0-50); Potassium 4.1 mmol/L (3.4-5.1); Sodium 136 mmol/L (137-145); Total Protein 6.4 g/dL (6.3-8.2)
[2020-12-30 07:15] VITALS: BP 146/82; PULSE 60; RESP 21; TEMP 36.6; O2SAT 97
[2020-12-30 07:50] VITALS: O2SAT 96
[2020-12-30] MEDS: SODIUM CHLORIDE 0.9% FLUSH 10 ML IV (08:17)
--- NOTE | 2020-12-30 09:15 | DI.ECHO.S_ITS ---
[facility]+ [facility] +---------+ : : [address] : : : : [id number] : : : : Phone: [phone]+ Echocardiogram Report + + :Name: DIANA YANEZ Study Date: 12/30/2020 Height: 72 in : :[facility] ReadingLocation: Weight: 197 lb : : Gender: Male BSA: 2.1 m2 : :: 1955 Age: 65 yrs BP: 146/82 mmHg: :Reason For Study: TIA SIS : :Ordering Physician: GINA, : :LEI Chavez Performed By: Raquel Carter : :Referring: LEI FUENTES : + + Interpretation Summary The patient was in sinus rhythm with heart rates between 62-70 bpm during the exam. The left ventricle is normal in size and wall thickness. The ejection fraction is estimated to be 60-65%. There is no obvious LV thrombus. The right ventricle is borderline dilated. The right ventricular systolic function is normal. No significant valvular pathology seen. Aortic arch did not show any significant atherosclerotic lesion. Procedure: A two-dimensional transthoracic echocardiogram with color flow and Doppler was performed. The study quality was technically adequate. There is no prior echocardiogram noted for this patient. The patient was in sinus rhythm with heart rates between 62-70 bpm during the exam. Left Ventricle: The left ventricle is normal in size and wall thickness. There is no thrombus. The ejection fraction is estimated to be 60-65%. There are no focal wall motion abnormalities. Diastolic parameters suggest a relaxation abnormality of the left ventricle, consistent with probable normal filling pressures. Right Ventricle: The right ventricle is borderline dilated. The right ventricular systolic function is normal. Atria: The left atrium is moderately dilated. The right atrium is mildly dilated. There is no Doppler evidence for an interatrial shunt. Mitral Valve: The mitral valve is normal. There is mild mitral regurgitation. Aortic Valve: The aortic valve is trileaflet. The aortic valve opens well. There is no aortic valve stenosis. No aortic regurgitation is present. Tricuspid Valve: The tricuspid valve is normal in structure and function. There is trace tricuspid regurgitation. Pulmonary artery pressures cannot be estimated because of the lack of a measurable TR jet velocity but the IVC suggests a CVP of around 3 mmHg. Pulmonic Valve: The pulmonic valve leaflets are thin and pliable; valve motion is normal. There is no pulmonic valvular regurgitation. Great Vessels: The aortic root is normal size. The ascending aorta is mildly enlarged. The IVC is of normal diameter and collapses greater than 50% with a sniff. This suggests a low right atrial pressure of 3 mm Hg. Pericardium/ Pleura There is no pericardial effusion. There is no pleural effusion. MMode/2D Measurements & Calculations LVIDd: 5.0 cm LVOT diam: 2.1 cm LVIDs: 3.4 cm Ao root diam: 3.5 cm FS: 32.0 % asc Aorta Diam: 3.6 cm EPSS: 0.65 cm Ao Arch Diam (Prox Trans): 3.1 cm IVSd: 0.91 cm LVPWd: 0.97 cm LV vale. diameter/BSA (cm/m^2): 2.4 LV sys. diameter/BSA (cm/m^2): 1.6 LA A2 area: 29.6 cm2 RA long axis: 6.0 cm LA A4 area: 27.5 cm2 RA area: 22.4 cm2 LA length (vol): 6.4 cm RA vol: 70.8 ml LA vol: 107.2 ml RA : 33.5 ml/m2 LA vol index: 50.7 ml/m2 IVC diam: 1.8 cm RVD1 (basal): 3.4 cm TAPSE: 2.4 cm Doppler Measurements & Calculations Ao V2 max: 155.4 cm/sec LVOT Max Bronson: 111.4 cm/sec Ao V2 mean: 96.2 cm/sec LV V1 max P.0 mmHg Ao max P.7 mmHg LV V1 VTI: 25.1 cm Ao mean P.5 mmHg GARRICK(I,D): 2.9 cm2 Ao V2 VTI: 31.1 cm GARRICK(V,D): 2.5 cm2 sev ratio: 0.81 GARRICK indexed to BSA (cm^2/m^2): 1.4 MV E max bronson: 71.7 cm/sec PA V2 max: 90.0 cm/sec Med Peak E' Bronson: 9.5 cm/sec PA V2 mean: 63.7 cm/sec E/E' med: 7.5 PA mean P.8 mmHg Lat Peak E' Bronson: 12.5 cm/sec PA pr(Accel): 31.0 mmHg E/E' lat: 5.8 E/e' average: 6.6 MV dec time: 0.31 sec SVLVOT): 89.0 ml Reading Physician:01:28 PM
--- NOTE | 2020-12-30 10:35 | CM.DANOTE ---
DCP/Assessment: Reviewed chart. Patient is a 65yr old male admitted to [facility].. with stroke like symptoms. PCP is Dr. Lang. Primary payor is 1)Medicare 2)[facility]. Met with patient this AM explained CM/SW role. Patient alert and oriented resting in bed at time of visit. Patient reports that he resides with spouse in [place]. Patient does not use any DME at baseline and indicates that he is I with all ADL's. Patient having ECHO today if negative there is potential for discharge. Patient remembers very little from yesterday. At this time medical reason for sudden onset of confusion unknown. P: Anticipate home with spouse when medically stable. REYNA Zamarripa Discharge Planning/Care Management CM Discharge Assessment Start: 12/30/20 09:17 Freq: Status: Active Protocol: Document 12/30/20 09:17 KJS (Rec: 12/30/20 09:20 KJS [id number]) Discharge Planning Assessment Assigned Pharmacy Innovation Assistant REYNA Zamarripa Contact Information Aarti Roberson (spouse) # [phone] Advance Directives? Yes History Provided By Patient,Medical Record Prior Living Arrangements House Household Members spouse Type of transporation used prior to Drives own vehicle admit Independent with ADL's Yes Is patient alert and oriented? Yes Caregiver for Another No Barriers to Discharge No Discharge Plan Home Transportation Arrangement Family to provide transport. Referrals Initiated None needed Whiteboard Updated in Patient Room with Yes name and ext. # of Pharmacy Innovation Assistant Review Status In Process Next Review Type Continued Stay Review Document 12/30/20 10:35 KJS (Rec: 12/30/20 10:35 KJS [id number]) Discharge Planning Assessment Assigned Pharmacy Innovation Assistant REYNA Zamarripa Contact Information Aarti Roberson (spouse) # Advance Directives? Yes History Provided By Patient,Medical Record Prior Living Arrangements House Household Members spouse Type of transporation used prior to Drives own vehicle admit Independent with ADL's Yes Is patient alert and oriented? Yes Caregiver for Another No Barriers to Discharge No Discharge Plan Home Transportation Arrangement Family to provide transport. Referrals Initiated None needed Whiteboard Updated in Patient Room with Yes name and ext. # of Pharmacy Innovation Assistant Review Status In Process Next Review Type Continued Stay Review
[2020-12-30 11:17] VITALS: BP 149/86; PULSE 64; RESP 23; TEMP 36.8; O2SAT 96
[2020-12-30] MEDS: ACETAMINOPHEN 325 MG TABLET 650 MG PO (11:56)
--- NOTE | 2020-12-30 12:08 | P.HP_ITS ---
History of Present Illness History of Present Illness Date Patient Seen: 12/30/20 Time Patient Seen: 08:08 Date of Onset of Symptoms: 12/29/20 Chief complaint: Code Stroke Narrative: Pt presented to ED yesterday with sudden onset of confusion and short term memory loss, which started and resolved spontaneously within a few hours. Started while he was building a rabbit fence outside, he felt fine- next thing he knows he is in the emergency room. Per reports he was acting funny, not responding correctly, could not remember what he had just been told, etc so called EMS. No apparent trauma. Pt felt a little foggy after coming to in the ER but today feels basically back to baseline. Eating, drinking, eliminating, and walking all without any trouble. No previous hx of amnesia/brain injury. No significant prior medical hx except hypothyroidism. Denies illicit substance use. Moderate alcohol intake Nonsmoker. Patient History Family & Social History Social History: household members spouse Prior Living Arrangements House Safety & Behavioral: Feels Safe in Current Yes Environment Been Physically Hurt or No Threatened By a Person Suicidal Ideation Description None Suicide Plan Description No Plan Tobacco & Substance use: Smoking Status Never smoker alcohol intake frequency 0-2 drinks per day Substance Use Type does not use Meds Home Medications and Allergies Home Medications Medication Instructions Recorded Confirmed Type levothyroxine 150 mcg PO QAM 12/29/20 12/29/20 History Allergies Allergy/AdvReac Type Severity Reaction Status Date / Time No Known Drug Allergies Allergy Verified 07/05/19 14:21 Review of Systems Review of Systems ROS: Yes All systems reviewed with the patient and are negative except as othe rwise documented Exam Vital Signs (past 8 hours): - 12/30/20 07:15 12/30/20 07:50 12/30/20 11:17 Temperature 97.8 F 98.3 F Pulse Rate 60 64 Respiratory Rate 21 23 Blood Pressure 146/82 H 149/86 H Pulse Oximetry 97 96 96 Oxygen Delivery Method Room Air Oxygen Flow Rate 0 Narrative Exam Narrative: alert awake in bed Const General: cooperative, healthy appearing, comfortable and well developed Eyes General: appearance normal, both eyes and all related structures Resp Effort & Inspection: normal respiratory effort and able to speak in complete sentences Auscultation: clear to auscultation bilaterally Cardio Rate: regular rate Rhythm: regular rhythm Heart Sounds: S1 normal and S2 normal GI Inspection: normal to inspection Palpation: soft Percussion: normal to percussion Auscultation: normal bowel sounds Neuro General: patient alert, patient awake, patient oriented x3, moves all extremities and CN's II-XI intact bilaterally Cognition: normal cognition Speech: speech normal Motor: muscle tone normal throughout Sensory Exam: no sensory deficits noted Psych Appearance: grossly normal Mental Status: mental status grossly normal Speech and Movement: speech and movement normal Thought Process: normal Thought Content: normal Objective Labs Result Diagrams: 12/30/20 05:10 12/30/20 05:10 Labs: Laboratory Results - last 24 hr 12/29/20 12/29/20 12/29/20 18:15 18:15 18:15 WBC 11.7 H RBC 4.40 L Hgb 14.8 Hct 44.1 MCV 100.2 H MCH 33.6 MCHC 33.5 RDW 13.2 Plt Count 244 Neut % (Auto) 73.3 Lymph % (Auto) 16.1 L [place] % (Auto) 8.1 Eos % (Auto) 1.6 L Baso % (Auto) 0.9 Neut # (Auto) 8600 H Lymph # (Auto) 1900 [place] # (Auto) 1000 H Eos # (Auto) 200 Baso # (Auto) 100 PT 11.7 INR 1.0 APTT 33 Sodium 138 Potassium 3.9 Chloride 106 Carbon Dioxide 28 BUN 16 Creatinine 1.13 Estimated GFR > 60.0 BUN/Creatinine Ratio 14.2 Glucose 99 Calcium 9.8 Magnesium Total Bilirubin AST ALT Alkaline Phosphatase Total Protein Albumin Globulin Albumin/Globulin Ratio TSH Free T4 Urine Color Urine Appearance Urine pH Ur Specific [place] Urine Protein Urine Glucose (UA) Urine Ketones Urine Occult Blood Urine Nitrate Urine Bilirubin Urine Urobilinogen Ur Leukocyte Esterase Urine RBC Urine WBC Urine Bacteria Ur Culture Indicated? Micro UA Comment U Opiates 300ng/mL cut Ur Oxycodone Screen Urine Methadone Screen Ur Barbiturates Screen U Tricyclic Antidepress Ur Phencyclidine Scrn Ur Amphetamines Screen U Methamphetamines Scrn Ur MDMA Scrn (Ecstasy) U Benzodiazepines Scrn Urine Cocaine Screen U Marijuana (THC) Screen SARS-CoV-2 (PCR) 12/29/20 12/29/20 12/29/20 18:15 18:15 18:25 WBC RBC Hgb Hct MCV MCH MCHC RDW Plt Count Neut % (Auto) Lymph % (Auto) [place] % (Auto) Eos % (Auto) Baso % (Auto) Neut # (Auto) Lymph # (Auto) [place] # (Auto) Eos # (Auto) Baso # (Auto) PT INR APTT Sodium Potassium Chloride Carbon Dioxide BUN Creatinine Estimated GFR BUN/Creatinine Ratio Glucose Calcium Magnesium 1.9 Total Bilirubin AST ALT Alkaline Phosphatase Total Protein Albumin Globulin Albumin/Globulin Ratio TSH 0.06 L Free T4 1.46 Urine Color Urine Appearance Urine pH Ur Specific [place] Urine Protein Urine Glucose (UA) Urine Ketones Urine Occult Blood Urine Nitrate Urine Bilirubin Urine Urobilinogen Ur Leukocyte Esterase Urine RBC Urine WBC Urine Bacteria Ur Culture Indicated? Micro UA Comment U Opiates 300ng/mL cut Ur Oxycodone Screen Urine Methadone Screen Ur Barbiturates Screen U Tricyclic Antidepress Ur Phencyclidine Scrn Ur Amphetamines Screen U Methamphetamines Scrn Ur MDMA Scrn (Ecstasy) U Benzodiazepines Scrn Urine Cocaine Screen U Marijuana (THC) Screen SARS-CoV-2 (PCR) Negative 12/29/20 12/29/20 12/29/20 18:45 18:45 19:00 WBC RBC Hgb Hct MCV MCH MCHC RDW Plt Count Neut % (Auto) Lymph % (Auto) [place] % (Auto) Eos % (Auto) Baso % (Auto) Neut # (Auto) Lymph # (Auto) [place] # (Auto) Eos # (Auto) Baso # (Auto) PT INR APTT Sodium Potassium Chloride Carbon Dioxide BUN Creatinine Estimated GFR BUN/Creatinine Ratio Glucose Calcium Magnesium Total Bilirubin AST ALT Alkaline Phosphatase Total Protein Albumin Globulin Albumin/Globulin Ratio TSH Free T4 Urine Color Yellow Urine Appearance Clear Urine pH 7.0 Ur Specific [place] 1.010 Urine Protein Negative Urine Glucose (UA) Negative Urine Ketones 1+ H Urine Occult Blood Negative Urine Nitrate Negative Urine Bilirubin Negative Urine Urobilinogen 0.2 Ur Leukocyte Esterase Negative Urine RBC 0-1/hpf Urine WBC 0-1/hpf Urine Bacteria None seen Ur Culture Indicated? Cult not indicated Micro UA Comment Microscopic normal U Opiates 300ng/mL cut Negative Ur Oxycodone Screen Negative Urine Methadone Screen Negative Ur Barbiturates Screen Negative U Tricyclic Antidepress Negative Ur Phencyclidine Scrn Negative Ur Amphetamines Screen Negative U Methamphetamines Scrn Negative Ur MDMA Scrn (Ecstasy) Negative U Benzodiazepines Scrn Negative Urine Cocaine Screen Negative U Marijuana (THC) Screen Negative SARS-CoV-2 (PCR) Negative 12/30/20 12/30/20 05:10 05:10 WBC 6.7 RBC 4.16 L Hgb 13.8 Hct 41.5 MCV 99.7 MCH 33.2 MCHC 33.3 RDW 13.3 Plt Count 207 Neut % (Auto) 67.1 Lymph % (Auto) 15.8 L [place] % (Auto) 12.0 Eos % (Auto) 4.1 H Baso % (Auto) 1.0 Neut # (Auto) 4500 Lymph # (Auto) 1100 [place] # (Auto) 800 Eos # (Auto) 300 Baso # (Auto) 100 PT INR APTT Sodium 136 L Potassium 4.1 Chloride 106 Carbon Dioxide 30 BUN 13 Creatinine 1.03 Estimated GFR > 60.0 BUN/Creatinine Ratio 12.6 Glucose 100 Calcium 8.9 Magnesium Total Bilirubin 1.0 AST 30 ALT 16 Alkaline Phosphatase 58 Total Protein 6.4 Albumin 3.8 Globulin 2.6 Albumin/Globulin Ratio 1.5 TSH Free T4 Urine Color Urine Appearance Urine pH Ur Specific [place] Urine Protein Urine Glucose (UA) Urine Ketones Urine Occult Blood Urine Nitrate Urine Bilirubin Urine Urobilinogen Ur Leukocyte Esterase Urine RBC Urine WBC Urine Bacteria Ur Culture Indicated? Micro UA Comment U Opiates 300ng/mL cut Ur Oxycodone Screen Urine Methadone Screen Ur Barbiturates Screen U Tricyclic Antidepress Ur Phencyclidine Scrn Ur Amphetamines Screen U Methamphetamines Scrn Ur MDMA Scrn (Ecstasy) U Benzodiazepines Scrn Urine Cocaine Screen U Marijuana (THC) Screen SARS-CoV-2 (PCR) Assessment & Plan Assessment and plan (1) Amnesia, global, transient: Problem details: Seems resolved fully today. Will check with to confirm return to baseline. Excluding other obvious causes with imaging and echo. Will correlate findings with stroke line. If no findings and pt still stable at baseline he may be suitable for DC today. Status: Acute (2) Hypothyroidism: Problem details: stable chronic problem, stable at this dose for years, continue Status: Chronic Scores GCS [place] coma scale eye opening: Spontaneous [place] coma scale verbal response: Orientated [place] coma scale motor response: Obey commands [place] coma scale total score: 15 NIHSS Level of Conciousness: Alert, keenly responsive Ask month/age: Answers both questions correctly. Open/close eyes, close hand: Performs both tasks correctly Best gaze horizontal: Normal Visual aggarwal: No visual loss Facial palsy: Normal symetrical movement Left arm drift: No drift for full 10 sec Right arm drift: No drift for full 10 sec Left leg drift: No drift for full 5 sec Right leg drift: No drift for full 5 sec Limb ataxia: Absent Sensory on face/arms/legs: Normal, no sensory loss Best language: No aphasia, normal Dysarthria: Normal Extinction or inattention: No abnormality Total NIH Stroke scale score: 0 Quality VTE Deep Vein Thrombosis/Pulmonary Embolism Present on Admission: No
[2020-12-30 12:09] VITALS: O2SAT 96
[2020-12-30 15:25] VITALS: BP 141/81; PULSE 63; RESP 18; TEMP 36.6; O2SAT 97
--- NOTE | 2020-12-30 15:58 | P.DS_ITS ---
History of Present Illness History of Present Illness Chief complaint: Code Stroke Narrative: Pt presented to ED yesterday with sudden onset of confusion and short term memory loss, which started and resolved spontaneously within a few hours. Started while he was building a rabbit fence outside, he felt fine- next thing he knew he was in the emergency room. Per reports he was acting funny, not responding correctly, could not remember what he had just been told, etc so called EMS. No apparent trauma. Pt felt a little foggy after coming to in the ER but today feels basically back to baseline. Eating, drinking, eliminating, and walking all without any trouble. No previous hx of amnesia/brain injury. No significant prior medical hx except hypothyroidism. Denies illicit substance use. Moderate alcohol intake. Nonsmoker. Discharge Providers Provider Date of admission: 12/29/20 19:44 Discharge Date: 12/30/20 Discharge provider: Patrick Lang MD Summary Hospital Course Discharge Diagnosis: Transient Global Amnesia Hospital Course: Pt did well, his symptoms remained resolved and workup was negative for acute cause. He reported some mild brain fog initially but by this morning he was alert and tracking well. We had a conversation this afternoon where he remembered more of our conversation from this morning than I did. OK to dc home and f/u as outpt. Status at Discharge Cognitive/behavioral status at discharge: oriented and at baseline, oriented Functional status at discharge: independent ambulation Time Spent with Patient Time spent: Less than 30 minutes Exam Vital Signs (past 8 hours): - 12/30/20 11:17 12/30/20 12:09 12/30/20 15:25 Temperature 98.3 F 97.8 F Pulse Rate 64 63 Respiratory Rate 23 18 Blood Pressure 149/86 H 141/81 H Pulse Oximetry 96 96 97 Oxygen Delivery Method Room Air Oxygen Flow Rate 0 Narrative Exam Narrative: alert pleasant fellow in bed Eyes General: appearance normal, both eyes and all related structures Visual Aggarwal: normal visual aggarwal by confrontation Pupils: PERRL Neck Neck: normal visual inspection and full ROM Resp Effort & Inspection: normal respiratory effort Auscultation: clear to auscultation bilaterally Cardio Rate: regular rate Rhythm: regular rhythm Heart Sounds: S1 normal and S2 normal Neuro General: patient alert, patient awake, patient oriented x3, tone normal, moves all extremities and CN's II-XI intact bilaterally Cranial Nerves: CN's II-XI intact bilaterally Cognition: normal cognition Speech: speech normal Sensory Exam: no sensory deficits noted DTR's: Rt Patellar: 2+ and Lt Patellar: 2+ Coordination: [id number] test normal Other: NIHSS score 0 Psych Appearance: grossly normal Mental Status: mental status grossly normal Speech and Movement: speech and movement normal Mood: congruent mood Affect: normal affect Attitude: cooperative Thought Process: normal Thought Content: normal Judgment: judgment good Other: short and detention memory intact Objective Labs Result Diagrams: 12/30/20 05:10 12/30/20 05:10 Labs: Laboratory Results - last 24 hr 12/29/20 12/29/20 12/29/20 18:15 18:15 18:15 WBC 11.7 H RBC 4.40 L Hgb 14.8 Hct 44.1 MCV 100.2 H MCH 33.6 MCHC 33.5 RDW 13.2 Plt Count 244 Neut % (Auto) 73.3 Lymph % (Auto) 16.1 L Blanco % (Auto) 8.1 Eos % (Auto) 1.6 L Baso % (Auto) 0.9 Neut # (Auto) 8600 H Lymph # (Auto) 1900 Blanco # (Auto) 1000 H Eos # (Auto) 200 Baso # (Auto) 100 PT 11.7 INR 1.0 APTT 33 Sodium 138 Potassium 3.9 Chloride 106 Carbon Dioxide 28 BUN 16 Creatinine 1.13 Estimated GFR > 60.0 BUN/Creatinine Ratio 14.2 Glucose 99 Calcium 9.8 Magnesium Total Bilirubin AST ALT Alkaline Phosphatase Total Protein Albumin Globulin Albumin/Globulin Ratio TSH Free T4 Urine Color Urine Appearance Urine pH Ur Specific Seth Urine Protein Urine Glucose (UA) Urine Ketones Urine Occult Blood Urine Nitrate Urine Bilirubin Urine Urobilinogen Ur Leukocyte Esterase Urine RBC Urine WBC Urine Bacteria Ur Culture Indicated? Micro UA Comment U Opiates 300ng/mL cut Ur Oxycodone Screen Urine Methadone Screen Ur Barbiturates Screen U Tricyclic Antidepress Ur Phencyclidine Scrn Ur Amphetamines Screen U Methamphetamines Scrn Ur MDMA Scrn (Ecstasy) U Benzodiazepines Scrn Urine Cocaine Screen U Marijuana (THC) Screen SARS-CoV-2 (PCR) 12/29/20 12/29/20 12/29/20 18:15 18:15 18:25 WBC RBC Hgb Hct MCV MCH MCHC RDW Plt Count Neut % (Auto) Lymph % (Auto) Blanco % (Auto) Eos % (Auto) Baso % (Auto) Neut # (Auto) Lymph # (Auto) Blanco # (Auto) Eos # (Auto) Baso # (Auto) PT INR APTT Sodium Potassium Chloride Carbon Dioxide BUN Creatinine Estimated GFR BUN/Creatinine Ratio Glucose Calcium Magnesium 1.9 Total Bilirubin AST ALT Alkaline Phosphatase Total Protein Albumin Globulin Albumin/Globulin Ratio TSH 0.06 L Free T4 1.46 Urine Color Urine Appearance Urine pH Ur Specific Seth Urine Protein Urine Glucose (UA) Urine Ketones Urine Occult Blood Urine Nitrate Urine Bilirubin Urine Urobilinogen Ur Leukocyte Esterase Urine RBC Urine WBC Urine Bacteria Ur Culture Indicated? Micro UA Comment U Opiates 300ng/mL cut Ur Oxycodone Screen Urine Methadone Screen Ur Barbiturates Screen U Tricyclic Antidepress Ur Phencyclidine Scrn Ur Amphetamines Screen U Methamphetamines Scrn Ur MDMA Scrn (Ecstasy) U Benzodiazepines Scrn Urine Cocaine Screen U Marijuana (THC) Screen SARS-CoV-2 (PCR) Negative 12/29/20 12/29/20 12/29/20 18:45 18:45 19:00 WBC RBC Hgb Hct MCV MCH MCHC RDW Plt Count Neut % (Auto) Lymph % (Auto) Blanco % (Auto) Eos % (Auto) Baso % (Auto) Neut # (Auto) Lymph # (Auto) Blanco # (Auto) Eos # (Auto) Baso # (Auto) PT INR APTT Sodium Potassium Chloride Carbon Dioxide BUN Creatinine Estimated GFR BUN/Creatinine Ratio Glucose Calcium Magnesium Total Bilirubin AST ALT Alkaline Phosphatase Total Protein Albumin Globulin Albumin/Globulin Ratio TSH Free T4 Urine Color Yellow Urine Appearance Clear Urine pH 7.0 Ur Specific Seth 1.010 Urine Protein Negative Urine Glucose (UA) Negative Urine Ketones 1+ H Urine Occult Blood Negative Urine Nitrate Negative Urine Bilirubin Negative Urine Urobilinogen 0.2 Ur Leukocyte Esterase Negative Urine RBC 0-1/hpf Urine WBC 0-1/hpf Urine Bacteria None seen Ur Culture Indicated? Cult not indicated Micro UA Comment Microscopic normal U Opiates 300ng/mL cut Negative Ur Oxycodone Screen Negative Urine Methadone Screen Negative Ur Barbiturates Screen Negative U Tricyclic Antidepress Negative Ur Phencyclidine Scrn Negative Ur Amphetamines Screen Negative U Methamphetamines Scrn Negative Ur MDMA Scrn (Ecstasy) Negative U Benzodiazepines Scrn Negative Urine Cocaine Screen Negative U Marijuana (THC) Screen Negative SARS-CoV-2 (PCR) Negative 12/30/20 12/30/20 05:10 05:10 WBC 6.7 RBC 4.16 L Hgb 13.8 Hct 41.5 MCV 99.7 MCH 33.2 MCHC 33.3 RDW 13.3 Plt Count 207 Neut % (Auto) 67.1 Lymph % (Auto) 15.8 L Blanco % (Auto) 12.0 Eos % (Auto) 4.1 H Baso % (Auto) 1.0 Neut # (Auto) 4500 Lymph # (Auto) 1100 Blanco # (Auto) 800 Eos # (Auto) 300 Baso # (Auto) 100 PT INR APTT Sodium 136 L Potassium 4.1 Chloride 106 Carbon Dioxide 30 BUN 13 Creatinine 1.03 Estimated GFR > 60.0 BUN/Creatinine Ratio 12.6 Glucose 100 Calcium 8.9 Magnesium Total Bilirubin 1.0 AST 30 ALT 16 Alkaline Phosphatase 58 Total Protein 6.4 Albumin 3.8 Globulin 2.6 Albumin/Globulin Ratio 1.5 TSH Free T4 Urine Color Urine Appearance Urine pH Ur Specific Seth Urine Protein Urine Glucose (UA) Urine Ketones Urine Occult Blood Urine Nitrate Urine Bilirubin Urine Urobilinogen Ur Leukocyte Esterase Urine RBC Urine WBC Urine Bacteria Ur Culture Indicated? Micro UA Comment U Opiates 300ng/mL cut Ur Oxycodone Screen Urine Methadone Screen Ur Barbiturates Screen U Tricyclic Antidepress Ur Phencyclidine Scrn Ur Amphetamines Screen U Methamphetamines Scrn Ur MDMA Scrn (Ecstasy) U Benzodiazepines Scrn Urine Cocaine Screen U Marijuana (THC) Screen SARS-CoV-2 (PCR) [facility] Social History household members: spouse Smoking Status: Never smoker Discharge Assessment & Plan Assessment and Plan Assessment: #Transient global amnesia Dx of exclusion as workups were negative. Pt appears back to baseline by time of discharge with normal neuro/mental status exam. F/u in office as outpt Advised pt to be in monitored setting for a day or two, no solo drives, running errands alone etc. #hypothyroidism chronic stable issue, does not seem connected, continue home meds Discharge Plan Discharge Plan Patient Disposition: Home Discharge orders & Medications Prescriptions: Continued levothyroxine 150 mcg tablet 150 mcg PO QAM RF: 0 Follow up/Referrals: Patrick Lang MD [Physician] - Diet/Activity/Treatments Diet: Diet as Tolerated Activity: as tolerated Visit Report/Discharge Packet Instructions: DI for Transient Global Amnesia Discharge Data Attending Provider: Aggie Purdy VTE Deep Vein Thrombosis/Pulmonary Embolism Present on Admission: No MIPS - Admit Advanced Care Plan / Current Medications Measures: #47 ? Advanced Care Plan Clinician documentation instruction: document at admission. [] I confirmed that the patient's Advance Care Plan is present, code status is documented, or surrogate decision maker is listed in the patient?s medical record. [SATISFIES MIPS PERFORMANCE] If Yes, Stop Here [] The patient?s Advance Care plan is not present because: (select) [MIPS PERFORMANCE EXCEPTION/EXCLUSION] [] I confirmed today that the patient does not wish or was not able to name a surrogate decision maker or provide an Advance Care Plan. [] Hospice care is currently being provided or has been provided this calendar year [] I did NOT confirm today the presence of an Advance Care Plan or surrogate decision maker documented within the patient's medical record. [DOES NOT SATISFY MIPS PERFORMANCE] #130 - Documentation of Current Medications in the Medical Record Clinician documentation instruction: use macro the first time you see a patient. [] I have utilized all available immediate resources to obtain, update, or review the patient?s current medications. [SATISFIES MIPS PERFORMANCE] If Yes, Stop Here [] The patient is not eligible for medication reconciliation; the patient is in an emergent medical situation where delaying treatment would jeopardize the patient?s health. [MIPS PERFORMANCE EXCEPTION/EXCLUSION] [] I did NOT confirm, update or review the patient's current list of medications today. [DOES NOT SATISFY MIPS PERFORMANCE] MIPS - CL Central Venous Catheter Placement Measure: #76 ? Prevention of Central Venous Catheter (CVC) ? Related Bloodstream Infection Clinician documentation instruction: use macro every time you place a central line. [] All elements of Maximal Sterile Barrier Technique, including hand hygiene, skin prep, and sterile ultrasound technique (if used) were followed. [SATISFIES MIPS PERFORMANCE] If Yes, Stop Here [] If ?No?, the medical reason all elements were NOT used for medical reason [] (ex. emergent condition). [] Maximal Sterile Barrier Technique was not followed, no reason provided [DOES NOT SATISFY MIPS PERFORMANCE] MIPS - DC Heart Failure Measures: #5 - Heart Failure (HF): Angiotensin-Converting Enzyme (AILYN) Inhibitor or Angiotensin Receptor Savanna (ARB) Therapy for Left Ventricular Systolic Dysfunction (LVSD) and #8 - Heart Failure (HF): Beta-Savanna Therapy for Left Ventricular Systolic Dysfunction (LVSD) Clinician documentation instruction: use macro at every CHF discharge. [] The patient has current or prior documentation of left ventricular ejection fraction (LVEF) less than 40%, or moderate or severely depressed left ventricular systolic function. Answer both: [SATISFIES MIPS PERFORMANCE] [] The patient was prescribed or already taking an Angiotensin-Converting Enzyme (AILYN) Inhibitor, or Angiotensin Receptor Savanna (ARB). [] The patient was prescribed or already taking a beta-savanna. If Yes to Both, Stop Here [] Patient not prescribed/taking: [MIPS PERFORMANCE EXCEPTION/EXCLUSION] [] AILYN or ARB for medical/patient/system reason(s) including [] (ex. allergy, intolerance, contraindication) [] Beta-savanna for medical/patient/system reason(s) including [] (ex. allergy, intolerance, contraindication) [] Patient not prescribed/taking: [DOES NOT SATISFY MIPS PERFORMANCE] [] AILYN or ARB, no reason given [] Beta-savanna, no reason given
== END 2020-12-30 16:10 | disposition home or self-care (01) ==
LOC: ED 19:44 → AC 19:45
PROVIDERS: Admitting Provider Family Medicine; Emergency Provider Emergency Medicine; Referring Provider Emergency Medicine; Visit Provider Family Medicine
DX: G45.4 Transient global amnesia (principal); E03.9 Hypothyroidism, unspecified; Z20.822 Contact with and (suspected) exposure to COVID-19
CPT/HCPCS: 36415; 70450; 70496; 70498; 80048; 80053; 80305; 81001; 82962; 83735; 84439; 84443; 85025; 85610; 85730; 87635; 93005; 93010; 93306; 96360; 96361; 99285; 99291; C9803; G0378; J1650; Q9967